=== PATIENT | female | born 1965 | race Caucasian/White ===

== ENCOUNTER 2016-11-26 02:44 | Emergency (ER) | payer OTHER ==
[~2016-11-26 02:44] MED LIST: HYPERTENSION MED; [UNRECOGNIZED DRUG - REMARK]; [UNRECOGNIZED DRUG - REMARK]
== END 2016-11-26 07:55 | disposition home or self-care (01) ==
LOC: SED 02:44
DX: F10.129 Alcohol abuse with intoxication, unspecified (principal)
CPT/HCPCS: 99283; G0480; J3411